=== PATIENT | female | born 1970 | race Caucasian/White ===

== ENCOUNTER 2019-11-03 09:08 | Day surgery (SDC) | payer BC ==
[~2019-11-03] VITALS: Ht 160 cm; Wt 70.3 kg
[2019-11-03] VITALS (8 sets, daily range): BP systolic 138–158; BP diastolic 88–100
[~2019-11-03 09:08] MED LIST: CLINDAMYCIN/D5W 900mg/50ml 50 ML IV ONE; famotidine 20mg tablet PO ONE; ringers solution, lacted 1,000 ML IV SCH
[2019-11-03] MEDS ORDERED: ceFAZolin 1000mg inj ONE (09:54)
[2019-11-03] MEDS ORDERED: BUPIVAcaine/PF 2.5 mg/ml (0.25%) 30ml vial ONE (09:54)
[2019-11-03] MEDS ORDERED: NO HOME MEDS (09:56)
[2019-11-03 09:58] LABS: CLARITY,URINE CLEAR (Clear); COLOR,URINE YELLOW (Yellow); GLUCOSE, URINE NEGATIVE (Neg); KETONES,URINE NEGATIVE (Neg); LEUKOCYTE ESTERASE ,URINE NEGATIVE (Neg); NITRITES, URINE NEGATIVE (Neg); OCCULT BLOOD,URINE NEGATIVE (Neg); PROTEIN,URINE NEGATIVE (Neg); UROBILINOGEN,URINE 0.2 E.U/dL (0.2-1.0)
[2019-11-03 10:00] LABS: UA COLLECTION TYPE CLN CATCH MIDSTREAM
[2019-11-03] MEDS ORDERED: ringers solution, lacted 1,000 ML IV SCH (10:06)
[2019-11-03 10:09] LABS: BASOPHILS % (AUTO) 0.8 % (0-1); EOSINOPHILS # (AUTO) 0.1 X10'3 (0-0.9); EOSINOPHILS % (AUTO) 1.1 % (0-6); LYMPHOCYTES # (AUTO) 2.3 X10'3 (1.1-4.8); LYMPHOCYTES % (AUTO) 44.6 % (21-51); MEAN CORPUSCULAR HEMOGLOBIN 32.2 PG (27.0-31.0); MEAN CORPUSCULAR HGB CONC 33.7 g/dL (33.0-36.5); MEAN CORPUSCULAR VOLUME 95.4 FL (78-98); MEAN PLATELET VOLUME 7.7 FL (7.4-10.4); MONOCYTES # (AUTO) 0.2 X10'3 (0-0.9); MONOCYTES % (AUTO) 4.4 % (2-12); NEUTROPHILS # (AUTO) 2.6 X10'3 (1.8-7.7); NEUTROPHILS % (AUTO) 49.1 % (42-75); PRE OP HEMATOCRIT 40.4 % (35.0-45.0); PRE OP HEMOGLOBIN 13.6 g/dL (12.0-16.0); PRE OP PLATELET COUNT 255 X10'3 (140-440); RED BLOOD COUNT 4.24 X10'6 (4.20-5.60)
[2019-11-03] MEDS ORDERED: morphine 4 MG/ML inj SYRINge IV PRN (10:10)
[2019-11-03] MEDS ORDERED: ondansetron/PF 4mg/2ml inj IV PRN (10:10)
[2019-11-03] MEDS ORDERED: morphine 2 MG/ML inj. syringe IV PRN (10:10)
[2019-11-03] MEDS ORDERED: meperidine/PF 25mg/ml syringe IV PRN ×3 (10:10)
[2019-11-03] MEDS ORDERED: proCHLORperazine 10 MG/2 ml inj IV PRN (10:10)
[2019-11-03 10:19] LABS: ALBUMIN 3.8 G/DL (3.4-5.0); ALBUMIN/GLOBULIN RATIO 1.2 (1.1-1.5); ALKALINE PHOSPHATASE 61 IU/L (46-116); BLOOD UREA NITROGEN 7 MG/DL (7-18); BUN/CREATININE RATIO 10.4 (6.6-38.0); CALCIUM 8.8 MG/DL (8.5-10.1); CHLORIDE 109 MMOL/L (99-107); CREATININE 0.67 MG/DL (0.40-0.90); PRE OP ALT 28 U/L (30-65); PRE OP ANION GAP 6 (8-16); PRE OP AST 22 U/L (10-37); PRE OP BILIRUB, TOTAL 0.6 MG/DL (0.0-1.0); PRE OP GLUCOSE 89 MG/DL (70-104); PRE OP POTASSIUM 3.9 MMOL/L (3.4-5.1); PRE OP SODIUM 144 MMOL/L (135-145); TOTAL CARBON DIOXIDE 28.6 MMOL/L (24-32); TOTAL PROTEIN 7.1 G/DL (6.4-8.2); eGFR > 90 ML/MIN
[2019-11-03] MEDS ORDERED: sevoflurane 250ml liquid IH ONE (11:06)
[2019-11-03] MEDS ORDERED: scopolamine 1.5mg patch.TD72 TD ONE (11:06)
[2019-11-03] MEDS ORDERED: rocuronium 10mg/ml inj IV ONE (11:06)
[2019-11-03] MEDS ORDERED: dexamethasone sod phosphate 10mg/ml inj ONE (11:06)
[2019-11-03] MEDS ORDERED: fentaNYL/PF 50MCG/1 ML 2ML syringe ONE (11:09)
[2019-11-03] MEDS ORDERED: propofol inj 20 ML IV ONE (11:09)
[2019-11-03] MEDS ORDERED: midazolam 2 mg/2 ml injection ONE (11:09)
[2019-11-03] MEDS ORDERED: LIDOcaine 2% (20mg/ml) 5ml vial ONE (11:09)
[2019-11-03] MEDS ORDERED: ondansetron/PF 4mg/2ml inj ONE (11:18)
[2019-11-03] MEDS ORDERED: neostigmine methylsulfate 1 MG/ML 10ml vial ONE (11:51)
[2019-11-03] MEDS ORDERED: glycopyrrolate 0.2mg/ml inj ONE (11:51)
[2019-11-03] MEDS ORDERED: ketorolac trometh. 30mg/ml inj. ONE (11:51)
[2019-11-03] MEDS ORDERED: acetaminophen 1,000mg/100ml IV 100 ML IV ONE (11:58)
--- NOTE | 2019-11-03 12:17 | NUR ---
Received from OR via [facility] , accompanied by Anesthesiologist HEYDI and report given by Anesthesiolgist. PATIENT WITH 32 ABDOMINAL BANDAIDS PRESENT. ALL CDI. 20G PIV IN LEFT UE RUNNING LR AT 100. MEDICATED FOR PAIN UPON ARRIVAL. VSS AT THIS TIME. Addendum: 11/03/19 at 1221 by Aram Hernandez RN, RN Amended: Links added.
--- NOTE | 2019-11-03 13:18 | NUR ---
All dc criteria for discharge home has been met. IV taken out without complications. All questions answered regarding dc paperwork. Vss. Significant other present to take patient home. Dressings cdi and vital signs stable. Taken out via wheelchair to personal vehicle where patient taken home by family/friend. Addendum: 11/03/19 at 1339 by Aram Hernandez RN, RN Amended: Links added.
== END 2019-11-03 13:18 | disposition home or self-care (01) ==
LOC: PAS 09:08
PROVIDERS: ATTEND Surgery
DX: K80.10 Calculus of gallbladder with chronic cholecystitis without obstruction (principal); Z88.6 Allergy status to analgesic agent; Z88.0 Allergy status to penicillin; Z91.018 Allergy to other foods; M19.90 Unspecified osteoarthritis, unspecified site; Z98.890 Other specified postprocedural states; Z79.899 Other long term (current) drug therapy
CPT/HCPCS: 36415; 47562; 80053; 81003; 85025; 93005; J0131; J0690; J1100; J1885; J2001; J2250; J2270; J2405; J2704; J2710; J3010; J3490; J7120; A4215; A4618; A7000

== ENCOUNTER 2019-11-03 21:01 | Emergency (ER) | payer BC ==
[~2019-11-03] VITALS: Ht 160 cm; Wt 70.0 kg
[~2019-11-03 21:01] MED LIST changes: -CLINDAMYCIN/D5W 900mg/50ml 50 ML IV ONE; +NO HOME MEDS; -famotidine 20mg tablet PO ONE; -ringers solution, lacted 1,000 ML IV SCH
[2019-11-03] MEDS ORDERED: normal saline 1000ML IV soln IVB ONE (21:25)
[2019-11-03] MEDS ORDERED: ondansetron/PF 4mg/2ml inj IV ONE (21:25)
[2019-11-03 21:54] LABS: BASOPHILS # (AUTO) 0.1 X10'3 (0-0.2); BASOPHILS % (AUTO) 0.4 % (0-1); EOSINOPHILS % (AUTO) 0 % (0-6); HEMOGLOBIN 10.5 g/dl (12.0-16.0); LYMPHOCYTES # (AUTO) 0.8 X10'3 (1.1-4.8); MEAN CORPUSCULAR HEMOGLOBIN 32.3 PG (27.0-31.0); MEAN CORPUSCULAR HGB CONC 33.9 g/dL (33.0-36.5); MEAN CORPUSCULAR VOLUME 95.1 FL (78-98); MONOCYTES # (AUTO) 0.2 X10'3 (0-0.9); NEUTROPHILS # (AUTO) 11.5 X10'3 (1.8-7.7); NEUTROPHILS % (AUTO) 91.6 % (42-75); PLATELET COUNT 327 X10'3 (140-440); RED BLOOD COUNT 3.26 X10'6 (4.20-5.60); RED CELL DISTRIBUTION WIDTH 13.5 % (11.5-14.5); WHITE BLOOD COUNT 12.5 X10'3 (4.5-11.0)
[2019-11-03 22:04] LABS: ALANINE AMINOTRANSFERASE 76 U/L (12-78); ALBUMIN 3.5 G/DL (3.4-5.0); ALBUMIN/GLOBULIN RATIO 1.2 (1.1-1.5); ALKALINE PHOSPHATASE 55 IU/L (46-116); ANION GAP 7 (8-16); ASPARTATE AMINO TRANSFERASE 71 U/L (10-37); BILIRUBIN,TOTAL 0.8 MG/DL (0.1-1.0); BLOOD UREA NITROGEN 12 MG/DL (7-18); BUN/CREATININE RATIO 11.7 (6.6-38.0); CALCIUM 8.7 MG/DL (8.5-10.1); CHLORIDE 105 MMOL/L (99-107); CREATININE 1.03 MG/DL (0.40-0.90); GLUCOSE 180 MG/DL (70-104); POTASSIUM 4.4 MMOL/L (3.5-5.1); SODIUM 139 MMOL/L (135-145); TOTAL PROTEIN 6.5 G/DL (6.4-8.2); eGFR 57 ML/MIN
--- NOTE | 2019-11-03 23:56 | NUR ---
ORTHO SATIC BP DONE BY MAYLIN FRANK AND REPORTED TO ELMIRA CORTEZ
[2019-11-04 00:56] VITALS: BP 106/62
== END 2019-11-04 00:50 | disposition home or self-care (01) ==
LOC: ER 21:02
DX: G89.18 Other acute postprocedural pain (principal); R11.2 Nausea with vomiting, unspecified; R55 Syncope and collapse; Z90.49 Acquired absence of other specified parts of digestive tract; Z90.710 Acquired absence of both cervix and uterus; Z98.890 Other specified postprocedural states; Z88.0 Allergy status to penicillin; Z88.2 Allergy status to sulfonamides; Z88.5 Allergy status to narcotic agent
CPT/HCPCS: 36415; 80053; 85025; 96361; 96374; 99285; J2405; J7030

== ENCOUNTER 2019-11-16 14:29 | Outpatient (CLI) | payer BC ==
[2019-11-16 15:54] LABS: BASOPHILS # (AUTO) 0.1 X10'3 (0-0.2); HEMOGLOBIN 10.4 g/dl (12.0-16.0); LYMPHOCYTES # (AUTO) 2.4 X10'3 (1.1-4.8); MONOCYTES # (AUTO) 0.5 X10'3 (0-0.9)
[2019-11-16 15:56] LABS: BASOPHILS % (AUTO) 0.5 % (0-1); EOSINOPHILS # (AUTO) 0.2 X10'3 (0-0.9); EOSINOPHILS % (AUTO) 1.3 % (0-6); HEMATOCRIT 30.8 % (35.0-45.0); MEAN CORPUSCULAR HEMOGLOBIN 30.9 PG (27.0-31.0); MEAN CORPUSCULAR HGB CONC 33.9 g/dL (33.0-36.5); MEAN CORPUSCULAR VOLUME 91.3 FL (78-98); MEAN PLATELET VOLUME 7.2 FL (7.4-10.4); MONOCYTES % (AUTO) 4.2 % (2-12); NEUTROPHILS # (AUTO) 8.9 X10'3 (1.8-7.7); PLATELET COUNT 690 X10'3 (140-440); RED BLOOD COUNT 3.38 X10'6 (4.20-5.60); RED CELL DISTRIBUTION WIDTH 13.6 % (11.5-14.5)
[2019-11-16 16:09] LABS: ALANINE AMINOTRANSFERASE 17 U/L (12-78); ALBUMIN 3.7 G/DL (3.4-5.0); ALBUMIN/GLOBULIN RATIO 0.8 (1.1-1.5); ALKALINE PHOSPHATASE 85 IU/L (46-116); ANION GAP 11 (8-16); ASPARTATE AMINO TRANSFERASE 20 U/L (10-37); BILIRUBIN,TOTAL 0.9 MG/DL (0.1-1.0); BLOOD UREA NITROGEN 15 MG/DL (7-18); BUN/CREATININE RATIO 21.4 (6.6-38.0); CALCIUM 9.6 MG/DL (8.5-10.1); CHLORIDE 102 MMOL/L (99-107); GLUCOSE 98 MG/DL (70-104); POTASSIUM 3.9 MMOL/L (3.5-5.1); SODIUM 140 MMOL/L (135-145); TOTAL CARBON DIOXIDE 27.4 MMOL/L (24-32); TOTAL PROTEIN 8.6 G/DL (6.4-8.2); eGFR 88 ML/MIN
== END 2019-11-16 23:59 | disposition home or self-care (01) ==
LOC: LAB 14:29
PROVIDERS: ATTEND Surgery
DX: D64.9 Anemia, unspecified (principal); R17 Unspecified jaundice
CPT/HCPCS: 36415; 80053; 85025